=== PATIENT | female | born 1975 | race Caucasian/White ===

== ENCOUNTER 2017-01-12 21:27 | Emergency (ER) | payer OTHER ==
--- NOTE | 2017-01-12 22:32 | XRAY Preliminary Report ---
Exam: XR Foot 3 View RT IMPRESSION: Soft tissue swelling over the dorsum of the foot. No acute fracture or dislocation. [facility] SITE ID: [id number]
--- NOTE | 2017-01-12 22:34 | XRAY Report ---
EXAM: RIGHT FOOT RADIOGRAPHY EXAM DATE: 01/12/2017 09:51 PM. CLINICAL HISTORY: Right foot trauma, pain COMPARISON: None. TECHNIQUE: 3 views. FINDINGS: Bones: Normal. No fractures or bone lesions. Joints: Normal. No subluxations. Soft Tissues: Soft tissue swelling over the dorsum of the foot. IMPRESSION: Soft tissue swelling over the dorsum of the foot. No acute fracture or dislocation. [facility] Referring Provider Line: [phone] SITE ID: [id number]
--- NOTE | 2017-01-12 23:43 | ED Physician Documentation ---
PD HPI LOWER EXT INJURY - Stated complaint Stated Complaint: R FOOT PAIN - Chief complaint Chief Complaint: Ext Problem - History obtained from History obtained from: Patient - History of Present Illness PD HPI LOW EXT INJURY LOCATION: Toe (right 2nd and 3rd toes) Type of injury: Blunt / blow Where injury occurred: Home Timing - onset: How many days ago (2) Improved by: Rest Worsened by: Moving, Palpating Recently seen: Not recently seen - Additional information Additional information: patient injured her right foot 2nd and 3rd toes 2 days ago, accidentally kicked the bottom of a screen door, bending her toes back (hyperdorsiflexion), has had pain in these two toes since that time, worse with movement. 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 - Present Medications Home Medications: Ambulatory Orders Medication Instructions Recorded Confirmed Cetirizine HCl [Zyrtec] 10 mg PO DAILY 10/08/15 01/12/17 Levothyroxine [Synthroid] 1 tab PO DAILY 10/08/15 01/12/17 - Allergies Allergies/Adverse Reactions: Allergies Allergy/AdvReac Type Severity Reaction Status Date / Time acetaminophen [From Percocet] Allergy Intermediate Hives Verified 01/12/17 21:39 codeine Allergy Intermediate flu-like Verified 01/12/17 21:39 sxs oxycodone HCl * Allergy Intermediate Hives Verified 01/12/17 21:39 [From Percocet] Penicillins Allergy Unknown Unknown Verified 01/12/17 21:39 - Social History Does the pt smoke?: No Smoking Status: Never smoker Does the pt drink ETOH?: Yes Does the pt have substance abuse?: No - Immunizations Immunizations are current?: Yes PD ED PE NORMAL - Vitals Vital signs reviewed: Yes - General General: Alert and oriented X 3, No acute distress, Well developed/nourished - Derm Derm: Normal color, Warm and dry - Extremities Extremities: No deformity, No edema PD ED PE EXPANDED - Extremities Extremities: Tenderness (right 2nd and 3rd toes, predominantly proximal phalanges) Results - Vitals Vitals: Vital Signs - 24 hr 08/18/17 08/18/17 21:33 23:59 Temperature 36.7 C Heart Rate 80 77 Respiratory 17 16 Rate Blood Pressure 134/88 H 136/78 H O2 Saturation 97 98 Oxygen O2 Source Room air - Rads (name of study) right foot xrays Radiology: Prelim report reviewed, See rad report PD MEDICAL DECISION MAKING - ED course Complexity details: reviewed results, re-evaluated patient, considered differential, d/w patient Departure - Departure Disposition: 01 Home, Self Care Clinical Impression: Toe sprain Qualifiers: Encounter type: initial encounter Qualified Code(s): S93.509A - Unspecified sprain of unspecified toe(s), initial encounter Condition: Good Instructions: ED Sprain Toe Follow-Up: Tressa Mckeon MD [Provider Admit Priv/Credential] - Discharge Date/Time: 01/13/17 00:00
[2017-01-13 00:01] VITALS: BP 136/78
== END 2017-01-13 | disposition home or self-care (01) ==
LOC: ED 21:27
DX: S93.509A Unspecified sprain of unspecified toe(s), initial encounter (principal); W22.8XXA Striking against or struck by other objects, initial encounter; Y92.019 Unspecified place in single-family (private) house as the place of occurrence of the external cause; E03.9 Hypothyroidism, unspecified
CPT/HCPCS: 99282; 99283

== ENCOUNTER 2018-03-05 14:48 | Outpatient (CLI) | payer OTHER ==
--- NOTE | 2018-03-06 19:21 | MRI Report ---
Reason: PAIN IN UNSPECIFIED KNEE Procedure Date: 03/05/2018 Accession Number: [id number] / [id number] Procedure: MRI - Knee RT W/O CPT Code: FULL RESULT: EXAM: RIGHT KNEE MRI WITHOUT CONTRAST EXAM DATE: 03/05/2018 03:40 PM. CLINICAL HISTORY: Pain in unspecified knee. COMPARISON: None. TECHNIQUE: Multiplanar, multisequence T1-weighted and fluid-sensitive sequences of the knee without contrast. Other: None. FINDINGS: Bones: No fractures or subluxations. No marrow edema. No bone lesions. Articular Cartilage: Severe chondromalacia medial and lateral patellar facets. Severe focal chondromalacia medial trochlear groove. Moderate chondromalacia mid medial tibiofemoral compartment. Medial Meniscus: The medial meniscus is intact. Lateral Meniscus: The lateral meniscus is intact. Cruciate Ligaments: The anterior and posterior cruciate ligaments are intact. Collateral Ligaments: The medial collateral and lateral collateral ligamentous structures are intact. Tendons: The quadriceps, patellar, semimembranosus, and popliteus tendons are unremarkable. Musculature: No edema or fatty atrophy. Other: No effusion. No popliteal cyst. No loose bodies. The medial and lateral retinacula are intact. Subcutaneous edema superficial to the distal patellar tendon. IMPRESSION: 1. Negative for meniscus tear or internal derangement. 2. Severe chondromalacia patella. [facility] MUSCULOSKELETAL RADIOLOGY SECTION
== END 2018-03-05 14:49 | disposition home or self-care (01) ==
LOC: DI 14:48
PROVIDERS: ATTEND Family Medicine
DX: M22.41 Chondromalacia patellae, right knee (principal)

== ENCOUNTER 2021-05-19 09:32 | Emergency (ER) | payer OTHER ==
[2021-05-19 09:40] VITALS: BP 141/69
[2021-05-19] MEDS ORDERED: PROPARACAINE 0.5% OPHTH DROPS 15 ML RIGHTEYE STA (09:45)
--- NOTE | 2021-05-19 10:15 | ED Physician Documentation ---
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 She immediately irrigated this and then with persistence of symptoms she was asked to come to the emergency department for further treatment. She states there is some minor irritation to her right eye. She has no change in her vision. She has not otherwise been ill. Review of Systems Constitutional: denies: Fever, Chills Eyes: reports: Irritation. 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 - Present Medications Home Medications: Ambulatory Orders Medication Instructions Recorded Confirmed Cetirizine HCl [Zyrtec] 10 mg PO DAILY 10/08/15 01/12/17 Levothyroxine [Synthroid] 1 tab PO DAILY 10/08/15 01/12/17 - Allergies Allergies/Adverse Reactions: Allergies Allergy/AdvReac Type Severity Reaction Status Date / Time acetaminophen [From Percocet] Allergy Intermediate Hives Verified 05/19/21 09:40 codeine Allergy Intermediate flu-like Verified 05/19/21 09:40 sxs oxycodone HCl * Allergy Intermediate Hives Verified 05/19/21 09:40 [From Percocet] Penicillins Allergy Unknown Unknown Verified 05/19/21 09:40 - Social History Does the pt smoke?: No Smoking Status: Never smoker Does the pt drink ETOH?: Yes Does the pt have substance abuse?: No - Immunizations Immunizations are current?: Yes PD ED PE NORMAL - Vitals Vital signs reviewed: Yes (hypertensive ) - General General: Alert and oriented X 3, No acute distress, Well developed/nourished - HEENT HEENT: Atraumatic, PERRL, EOMI, Other (minimal injection to the right conjunciva) - Neck Neck: Supple, no meningeal sign, No bony TTP - Respiratory Respiratory: No respiratory distress - Derm Derm: Normal color, Warm and dry, No rash - Extremities Extremities: No deformity, No edema - Neuro Neuro: Alert and oriented X 3, sales operations lead 2-12 intact, No motor deficit, No sensory deficit, Normal speech Eye Opening: Spontaneous Motor: Obeys Commands Verbal: Oriented GCS Score: 15 - Psych Psych: Normal mood, Normal affect Results - Vitals Vitals: Vital Signs - 24 hr 05/19/21 09:36 Temperature 36.4 C L Heart Rate 80 Respiratory 18 Rate Blood Pressure 141/69 H O2 Saturation 95 Oxygen O2 Source Room air PD MEDICAL DECISION MAKING - ED course Complexity details: re-evaluated patient, considered differential, d/w patient ED course: 45-year-old female with chemical exposure to the right eye has a pH of 7 prior to irrigation her eyes instilled with Alcaine followed by irrigation with a liter of saline. No further treatment is applied. Departure - Departure Disposition: 01 Home, Self Care Clinical Impression: Chemical conjunctivitis of right eye Condition: Stable Instructions: ED Chemical Conjunctivitis Follow-Up: DENISE PIERCE MD [Primary Care Provider] -
== END 2021-05-19 10:38 | disposition home or self-care (01) ==
LOC: ED 09:32
DX: H10.211 Acute toxic conjunctivitis, right eye (principal); X58.XXXA Exposure to other specified factors, initial encounter; Y92.239 Unspecified place in hospital as the place of occurrence of the external cause; Y99.0 Civilian activity done for income or pay
CPT/HCPCS: 99281; 99282; J3490

== ENCOUNTER 2021-11-15 14:54 | Outpatient (CLI) | payer BC, OTHER ==
--- NOTE | 2021-11-15 16:43 | Ultrasound Report ---
PROCEDURE: Pelvic w/Transvaginal INDICATIONS: MENOMETRORRHAGIA TECHNIQUE: Real-time scanning was performed of the pelvic organs, with image documentation. Additional endovagi nal scanning was necessary due to incomplete visualization of the adnexal and endometrial structures by transabdominal scanning. COMPARISON: None. FINDINGS: Uterus: Uterus is anteverted and normal in size at 13.9 x 5.7 x 5.7 cm. The myometrium is homogeneo us. The endometrium measures 14 mm in combined thickness. No focal uterine mass Ovaries: The right ovary measures 3.7 x 3.2 x 3.3 cm, with a calculated ovarian volume of 20.4 cc. The left ovary measures 2.8 x 2.1 x 2.4 cm, with a calculated ovarian volume of 0.4 cc. The ovaries have a normal sonographic appearance. Less than 12 follicles can be seen in each ovary. Right ovari an cyst measuring 29 mm. Left ovarian cyst measuring 15 mm. No adnexal masses are seen. Other: No pathologic free abdominal or pelvic fluid. IMPRESSION: Negative examination. Reviewed by: Sharon Mccall MD on 11/15/2021 4:42 PM PDT Approved by: Sharon Mccall MD on 11/15/2021 4:42 PM PDT Station ID: [id number]
== END 2021-11-15 14:55 | disposition home or self-care (01) ==
LOC: DI 14:54
PROVIDERS: ATTEND Obstetrics & Gynecology
DX: N92.1 Excessive and frequent menstruation with irregular cycle (principal)

== ENCOUNTER 2022-04-17 13:06 | Outpatient (CLI) | payer BC, OTHER | END 2022-04-17 13:07 | disposition home or self-care (01) | LOC: NS 13:06 | PROVIDERS: ATTEND Registered Nurse | DX: R73.03 Prediabetes (principal); E66.9 Obesity, unspecified; Z71.3 Dietary counseling and surveillance; Z71.89 Other specified counseling; Z68.42 Body mass index [BMI] 45.0-49.9, adult; Z79.84 Long term (current) use of oral hypoglycemic drugs; Z79.899 Other long term (current) drug therapy | CPT/HCPCS: 97802 ==

== ENCOUNTER 2022-05-30 12:58 | Outpatient (CLI) | payer BC, OTHER | END 2022-05-30 12:59 | disposition home or self-care (01) | LOC: NS 12:58 | PROVIDERS: ATTEND Registered Nurse | DX: Z71.3 Dietary counseling and surveillance (principal); R73.03 Prediabetes | CPT/HCPCS: 97803 ==

== ENCOUNTER 2022-06-09 09:10 | Outpatient (CLI) | payer BC, OTHER ==
--- NOTE | 2022-06-09 10:12 | SLEEP CARE CONSULTATION ---
Information from patient questionnaire entered by Diana Paula. I have reviewed and concur with the information entered by Diana Paula. This document represents the service I personally performed and the decisions made by me, Litzy Roe ARNP. History of Present Illness Service Date and Time: 06/09/2022 0910 Reason for Visit: New patient Chief Complaint: reports: Snoring, Excessive daytime sleepiness, Observed pauses in breathing, Fatigue, Frequent awakenings at night Date of Onset: 5-6 years Usual bedtime: 9PM Time it takes to fall asleep: 15MIN Snores at night: Yes Observed to quit breathing while asleep: Yes Sleeps alone due to snoring: No Number of times waking at night: 2-3 Reasons for waking at night: reports: Choking, Snoring, Pain, Bathroom, Other (NOISE; "melvi horses" twice a week; hands will fall asleep due to bilateral carpal tunnel) Toss, Turn, or Twitch while sleeping: Yes Recalls having dreams: Yes Usually gets out of bed at: 5-7AM Feels refreshed in the morning: Yes (sometimes; more often she does not feel rested) Morning headache: Yes (2-3 times a week; RESOLVES MID AFTERNOON) Sleepy or fatigued during the day: Yes Ever fallen asleep while driving: No Takes day naps: Yes (1 daily intentionally but sometimes more unintentionally) Dreams during day naps: Yes (on/off) Prior sleep studies: No Additional HPI information: I had the pleasure of seeing CHRISTINA DAY today regarding the possibility of her having a sleep disorder. Her current complaints are excessive daytime sleepiness, fatigue, frequent night awakenings, observed pauses in breathing and snoring. She had a hysterectomy in January 2022 and was told she should seek evaluation for sleep apnea. She states that she has been told that she snores but it is light. She states she will wake herself up "snorting" and sometimes gasping. She states that she does take naps. She will sometimes have to take a nap because she physically hurts, but a 20 minute nap will revive her. - Parasomnia Symptoms Ever been unable to move upon waking from sleep: No Walks in sleep: Yes (lot as a child; not in a long time; has woke up sitting on side of bed) Talks in sleep: Yes Ever acted out dreams in sleep: No Ever felt weak in the knees when startled or emotional: No Bothered by creepy, crawly, restless sensations in legs: No Problems with memory or concentration: Yes (both) Subjective Initial [place] Sleepiness Scale score: 18 (05/28/22) Past Medical History Past Medical History: reports: Hypothyroidism, Anxiety, Other (hysterectomy 01/2022; pre- DM (seeing dietitian)) Social History 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 Patient is and lives in [place]. Have you smoked in the past 12 months: No Alcohol use: Yes Alcohol amount and frequency: 1 DRINK 1 X A MONTH Caffeine use: Yes Caffeine amount and frequency: 16OZ MORNING COFFEE Family History Family history of sleep disordered breathing: Yes Family Hx Sleep Apnea: Father: Snoring, Sleep apnea - Treated Allergies and Home Medications Known drug allergies: Yes (PENICILLIN, PERCOCET,CODIENE, ACETOMINOPHEN) Drug allergies reviewed: Yes Home medication list reviewed: Yes Allergy and home medication list: Medications: Levothyroxine Vit D 4000 units Elderberry supplement Review of Systems Weight gain over past 5 years: 50 Cardiovascular: reports: palpitations, leg or foot swelling Respiratory: reports: wheeze Neurological: reports: headaches. denies: head trauma Psychiatric: reports: anxiety Ear/Nose/Throat: reports: sinus problems, wisdom teeth removed. denies: tonsillectomy Endocrine: reports: thyroid disease Musculoskeletal: reports: joint pain, muscle pain or cramping Physical Exam Vital signs obtained and entered by: DIANA Davis MA Blood Pressure: 132/80 (LEFT ARM) Cuff size: long Heart Rate: 83 O2 Saturation: 97 Height: 5 ft 2 in Weight: 270 lb 3.2 oz Body Mass Index: 49.4 BMI Classification: Morbidly Obese Neck circumference: 17.5 Mouth and throat: narrow oropharynx Soft palate: long Hard palate: normal Uvula: normal Uvula visualization: 25% Mallampati Class III Tongue: enlarged in size with teeth josé on lateral edges Tonsils: 1+ Neck: normal w/o lymphadenopathy or thyromegaly Heart: regular rate and rhythm Lungs: clear bilaterally Impression and Plan 1. Suspected Obstructive Sleep Apnea-Hypopnea Syndrome, as suggested by a history of loud and irregular snoring, observed cessation of breath while asleep , gasping or choking in sleep, morning headache, frequent awakening during the night, unrefreshed sleep, cognitive impairment, and excessive daytime sleepiness. Narrow oropharynx and obesity are common predisposing factors for obstructive sleep apnea-hypopnea syndrome. I recommend proceeding to polysomnography to confirm the diagnosis and to assess severity. If the patient has significant sleep disordered breathing, a manual CPAP titration study will also be performed to find the optimal treatment pressure. I informed the patient of what the sleep studies involve and after some discussion, obtained agreement to proceed. The pathophysiology of obstructive sleep apnea-hypopnea syndrome was discussed with the patient and health risks of cardiovascular and cerebrovascular disease if not treated. Risks of drowsy driving discussed in detail and patient advised to avoid long distance driving and to chain puller at the first sign of drowsiness. Patient agreed to plan. * Schedule polysomnography * Avoid long distance driving or driving when feeling sleepy. * Avoid alcohol, sedative and muscle relaxant around bedtime. * Attempt to lose weight. * Review instructions provided by trained office staff on how to prepare for the sleep study. * Return for follow-up after sleep study completed. Counseling Topics: Weight loss health impact Visit Type: In Office Time Spent with Patient (minutes): 31 Provider Statement: I spent 100% of the Face to Face Visit with the patient with greater than 50% spent counseling the patient and coordination of care.
[2022-06-09 10:13] VITALS: BP 132/80
== END 2022-06-09 09:11 | disposition home or self-care (01) ==
LOC: SC 09:10
PROVIDERS: ATTEND Nurse Practitioner Family
DX: G47.33 Obstructive sleep apnea (adult) (pediatric) (principal); E66.01 Morbid (severe) obesity due to excess calories; Z68.42 Body mass index [BMI] 45.0-49.9, adult
CPT/HCPCS: 99203; 99212

== ENCOUNTER 2022-07-03 12:52 | Outpatient (CLI) | payer BC, OTHER | END 2022-07-03 12:53 | disposition home or self-care (01) | LOC: NS 12:52 | PROVIDERS: ATTEND Registered Nurse | DX: R73.03 Prediabetes (principal); Z71.3 Dietary counseling and surveillance; Z71.89 Other specified counseling; Z68.42 Body mass index [BMI] 45.0-49.9, adult | CPT/HCPCS: 97803 ==

== ENCOUNTER 2022-07-04 14:20 | Outpatient (CLI) | payer BC, OTHER | END 2022-07-04 14:21 | disposition home or self-care (01) | LOC: SC 14:20 | PROVIDERS: ATTEND Nurse Practitioner Family | DX: G47.33 Obstructive sleep apnea (adult) (pediatric) (principal); R09.02 Hypoxemia | CPT/HCPCS: 95806 ==

== ENCOUNTER 2022-07-18 14:01 | Outpatient (CLI) | payer BC, OTHER ==
[2022-07-18 14:42] VITALS: BP 126/72
--- NOTE | 2022-07-18 14:42 | SLEEP CARE CONSULTATION ---
Information from patient questionnaire entered by Diana Paula. I have reviewed and concur with the information entered by Diana Paula. This document represents the service I personally performed and the decisions made by me, Litzy Roe ARNP. History of Present Illness Service Date and Time: 07/18/2022 1401 Initial [place] Sleepiness Scale score: 18 (05/28/22) Current [place] Sleepiness Scale score: 21 (07/18/22) Additional HPI information: CHRISTINA DAY returns for follow up and results of the recently performed home sleep study. I explained the pathophysiology behind obstructive sleep apnea. We then spent quite a bit of time discussing different treatment options. For mild obstructive sleep apnea, surgery and oral appliance are alternatives to nasal CPAP therapy but in moderate or severe cases, nasal CPAP is the most effective and reliable treatment. Because apnea is primarily in supine position, then positional management therapy could be effective. Methods discussed such as positioning with pillows to prevent supine sleep. I reviewed the impact of weight changes on sleep apnea and strongly recommended losing weight. After some discussion, the patient opted to go with the nasal CPAP therapy. Nasal autoCPAP set at 4-15 cmH20 will be ordered with rationale explained. A manual titration study will be ordered if unable to find optimal pressure with office adjustments. I explained how CPAP machine works and what to expect when using the machine. Using CPAP every night in order to get used to it was emphasized. Patient advised to put CPAP mask on before getting into bed so as not to fall asleep w ithout CPAP. To assist acclimation to CPAP use, it could also be used for a short time during day while reading or watching TV. The patient was instructed to call the CPAP supplier to discuss any mechanical problem that may occur. If the mask given is uncomfortable or is difficult to keep on through the night even with adjustment, contact the CPAP supplier as many will replace with another mask style if notified before 30 days. If snoring or perceives is not getting enough air or too much air from the machine, notify this office. Patient does not drink alcohol. Patient was cautioned about risks of drowsy driving until sleepiness symptoms resolve. Patient denies drowsy driving. Sleep Study - Results Type of Sleep Study: Home sleep study (COMPLETED 07-04-22) Prior sleep studies: No Polysomnography/Home Sleep Study results: Physician Impression: The quality of the study is good. The length of the study is adequate (> 240 minutes). Please also see the tabulated and graphic data. 1. Obstructive Sleep Apnea-Hypopnea (ICD-10 G47.33), moderate, with an AHI of 16.2/hr and annie SaO2 of 80%. During the study, the patient had 13 apneas (13 obstructive, 0 central, 0 mixed) and 90 hypopneas. The longest episode lasted 89.0 seconds. The respiratory events occurred independently of sleep stage and body position (supine AHI was 16.1 and non-supine, 16.59). 2. Hypoxemia (ICD-10 R09.02), moderate, with the lowest oxygen saturation of 80 % and 23.1 minutes with SaO2 under 90%. Baseline oxygen saturation was normal (Average oxygen saturation was 92%). Allergies and Home Medications Drug allergies reviewed: Yes (as listed in EMR) Home medication list reviewed: Yes (no changes) Review of Systems Review of systems same as previous: Yes (no changes) Physical Exam Vital signs obtained and entered by: DIANA Davis MA Blood Pressure: 126/72 (LEFT ARM) Cuff size: regular Heart Rate: 82 O2 Saturation: 95 Height: 5 ft 2 in Weight: 271 lb 3.2 oz Body Mass Index: 49.6 BMI Classification: Morbidly Obese Impression and Plan 1. Obstructive Sleep Apnea-Hypopnea Syndrome, moderate, with lowest oxygen saturation of 80%. Obviously this is the cause of the patients symptoms of unrefreshed sleep, and excessive daytime sleepiness. Positive pressure therapy could benefit anxiety. As mentioned above, the patient will be started on nasal autoCPAP therapy with pressure set at 4-15 cmH2O. Compliance guidelines also reviewed. A copy of compliance guidelines will be given for reference at check out. 2. Hypoxemia, moderate, with the lowest oxygen saturation of 80 % and 23.1 minutes with SaO2 under 90%. Her baseline oxygen saturation was normal with an average oxygen saturation of 92%. * Nasal auto CPAP therapy, pressure at 4-15 cm H2O. * Attempt to lose weight. * Avoid alcohol consumption near bedtime. * Avoid supine sleep until using CPAP. * The patient is again cautioned about driving until sleepiness completely resolves. * Return one month after CPAP obtained. I will assess response to therapy and compliance at that time. Counseling Topics: Weight loss health impact Visit Type: In Office Time Spent with Patient (minutes): 20 Provider Statement: I spent 100% of the Face to Face Visit with the patient with greater than 50% spent counseling the patient and coordination of care.
== END 2022-07-18 14:02 | disposition home or self-care (01) ==
LOC: SC 14:01
PROVIDERS: ATTEND Nurse Practitioner Family
DX: G47.33 Obstructive sleep apnea (adult) (pediatric) (principal); R09.02 Hypoxemia; E66.01 Morbid (severe) obesity due to excess calories; Z68.42 Body mass index [BMI] 45.0-49.9, adult
CPT/HCPCS: 99212; 99213

== ENCOUNTER 2022-09-12 09:06 | Outpatient (CLI) | payer BC, OTHER ==
--- NOTE | 2022-09-12 09:36 | SLEEP CARE CONSULTATION ---
Information from patient questionnaire entered by Maryann Paula. I have reviewed and concur with the information entered by Maryann Paula. This document represents the service I personally performed and the decisions made by , Litzy Roe ARNP. History of Present Illness Service Date and Time: 09/12/2022 09 Previous diagnosis: Moderate, Obstructive Sleep Apnea-Hypopnea Syndrome AHI: 16.2 (in 2022) Reason for follow up: first compliance Equipment type: CPAP (RESMED Airsense 10, s/u 06/2022) Equipment obtained from: Other ([facility], got initial supplies) Mask style: Nasal Mask brand: Respironics (Dreamwear, small cushion) Backup mask available: No Last cushion change: 1 month Prior sleep studies: No Type of Sleep Study: Home sleep study (COMPLETED 07-04-22) HPI additional information: CHRISTINA DAY was diagnosed to have moderate, AHI 16.2, obstructive sleep apnea- hypopnea syndrome and returned today for CPAP therapy first compliance follow- up. Sleep Study - Results Type of Sleep Study: Home sleep study (COMPLETED 07-04-22) Prior sleep studies: No CPAP Compliance Data - Data Reviewed with Patient Average duration of nightly device use: 6 HRS 24 MINS Compliance rate %: 87 (08/12/22-09/10/22; 30 used) Current pressure setting (cmH2O): 4-15 (median 5.8, avg 7.8, max 9.0) Average residual AHI: 0.5 Central apnea: 0 Obstructive apnea: 0.2 Subjective Missed days of use due to: reports: travel Patient concerns: reports: epistaxis (dry bloody nose 3-4, usually has with her allergies during this season), other (headaches, improving/reduced). denies: aerophagia, mask discomfort, air blowing in eyes, mask leak noise, condensation in mask/hose, nasal congestion, dry mouth, nose, throat Observed to snore while using device: No Current pressure setting perceived as: comfortable On therapy, patient: reports: sleeping better, awakening more refreshed, being more awake and alert during the day (not needing nap as often), more rested overall. denies: drowsiness while driving Initial [place] Sleepiness Scale score: 18 (05/28/22) Current [place] Sleepiness Scale score: 10 Allergies and Home Medications Drug allergies reviewed: Yes Home medication list reviewed: Yes (-triptan for migraines, not taken yet) Allergy and home medication list: Allergies acetaminophen [From Percocet] Allergy (Intermediate, Verified 09/11/22 08:38) Hives codeine Allergy (Intermediate, Verified 09/11/22 08:38) flu-like sxs oxycodone HCl * [From Percocet] Allergy (Intermediate, Verified 09/11/22 08:38) Hives Penicillins Allergy (Unknown, Verified 09/11/22 08:38) Unknown Review of Systems Review of systems same as previous: Yes (no changes) Physical Exam Vital signs obtained and entered by: MARYANN Davis MA Blood Pressure: 138/90 (LEFT ARM) Cuff size: long Heart Rate: 84 O2 Saturation: 94 Height: 5 ft 2 in Weight: 270 lb 6.4 oz Weight change since last visit: 1 lb loss Body Mass Index: 49.4 BMI Classification: Morbidly Obese Impression and Plan 1. Obstructive Sleep Apnea-Hypopnea Syndrome, moderate, with good treatment compliance and gooda apnea control. On CPAP therapy, the patient has better sleep quality and is more rested overall. She has been having some bloody noses 3-4 times in last month. She states she normally gets these with her allergies during this season. Nasal dryness can contribute to nose bleeding and can be reduced with increasing the CPAP humidity and the heated hose can be increased if condensation. She may also use a nasal moisturizer like [place] that she can obtain from local pharmacy. She voiced understanding. The patients pressure will be changed to autoCPAP 6-9 cmH20 to reflect pressures being used. Patient advised to contact me if pressure change is uncomfortable so that it can be adjusted. Goals for apnea control discussed. Patient's apnea severity and rationale for treatment to reduce apnea, improve sleep quality and reduce cardio vascular and cerebrovascular events was reviewed. I also reviewed the benefit of consistent device use of CPAP for anxiety. 2. Obesity, unspecified. Currently patients BMI is 49.4. Obesity increases the risk of apnea, CPAP pressure requirements and overall health risks especially cardiovascular and diabetes. Thus patient is advised to continue to try to lose weight. * Change auto CPAP pressure to 6-9 cmH2O * Notify me if snoring with mask or feeling that the pressure is too much or too little * Attempt to lose weight * Call this office if any problems using CPAP * Return for follow up in 1-2 months, or sooner if concerns arise Counseling Topics: Spare mask, Weight loss health impact Visit Type: In Office Time Spent with Patient (minutes): 22 Provider Statement: I spent 100% of the Face to Face Visit with the patient with greater than 50% spent counseling the patient and coordination of care.
[2022-09-12 09:37] VITALS: BP 138/90
== END 2022-09-12 09:07 | disposition home or self-care (01) ==
LOC: SC 09:06
PROVIDERS: ATTEND Nurse Practitioner Family
DX: G47.33 Obstructive sleep apnea (adult) (pediatric) (principal); E66.01 Morbid (severe) obesity due to excess calories; Z68.42 Body mass index [BMI] 45.0-49.9, adult
CPT/HCPCS: 99212; 99213

== ENCOUNTER 2022-11-07 09:12 | Outpatient (CLI) | payer BC, OTHER ==
--- NOTE | 2022-11-07 09:35 | SLEEP CARE CONSULTATION ---
Information from patient questionnaire entered by Diana Paula. I have reviewed and concur with the information entered by Diana Paula. This document represents the service I personally performed and the decisions made by , Litzy Roe ARNP. History of Present Illness Service Date and Time: 11/07/2022 09 Previous diagnosis: Moderate, Obstructive Sleep Apnea-Hypopnea Syndrome AHI: 16.2 (in 2022) Reason for follow up: other (2 MONTH F/U) Equipment type: CPAP (RESMED Airsense 10, s/u 06/2022) Equipment obtained from: Other ([facility], got initial supplies) Mask style: Nasal Mask brand: Respironics (Dreamwear) Backup mask available: Yes (other mask) Last cushion change: 1 month Prior sleep studies: No Type of Sleep Study: Home sleep study (COMPLETED 07-04-22) HPI additional information: CHRISTINA DAY was diagnosed to have moderate, AHI 16.2, obstructive sleep apnea- hypopnea syndrome and returned today for CPAP therapy two month follow-up. Sleep Study - Results Type of Sleep Study: Home sleep study (COMPLETED 07-04-22) Prior sleep studies: No CPAP Compliance Data - Data Reviewed with Patient Average duration of nightly device use: 6 hours 22 mins Compliance rate %: 82 (09/07/22-11/05/22; 52/60 days used) Current pressure setting (cmH2O): 6-9 Average residual AHI: 0.3 Central apnea: 0 Obstructive apnea: 0.2 Hypopnea: 0 Average large leak: 4.4 LPM Subjective Missed days of use due to: reports: travel Patient concerns: reports: mask discomfort (head gear pulling on hair, wearing cap on head with some improvement), air blowing in eyes (little bit), dry mouth, nose, throat (dry nose) Observed to snore while using device: No Current pressure setting perceived as: comfortable On therapy, patient: reports: sleeping better, awakening more refreshed, being more awake and alert during the day, more rested overall. denies: drowsiness while driving Initial [place] Sleepiness Scale score: 18 (05/28/22) Current [place] Sleepiness Scale score: 8 Allergies and Home Medications Known drug allergies: Yes (as listed) Drug allergies reviewed: Yes Home medication list reviewed: Yes (Lexapro for anxiety and depression) Allergy and home medication list: Allergies acetaminophen [From Percocet] Allergy (Intermediate, Verified 11/06/22 20:59) Hives codeine Allergy (Intermediate, Verified 11/06/22 20:59) flu-like sxs oxycodone HCl * [From Percocet] Allergy (Intermediate, Verified 11/06/22 20:59) Hives Penicillins Allergy (Unknown, Verified 11/06/22 20:59) Unknown Review of Systems Review of systems same as previous: Yes (no changes) Physical Exam Vital signs obtained and entered by: Litzy Mcintosh NP Blood Pressure: 141/91 Cuff size: wrist (left) Heart Rate: 75 O2 Saturation: 96 Height: 5 ft 2 in Weight: 270 lb 6.4 oz Body Mass Index: 49.4 BMI Classification: Morbidly Obese Impression and Plan 1. Obstructive Sleep Apnea-Hypopnea Syndrome, moderate, with good treatment compliance and good apnea control. On CPAP therapy, the patient has better sleep quality and is more rested overall. Patient has been doing very well and has significant improvement of her sleep apnea. She states she still gets a little bit of dry nose and has tried to adjust her humidity setting but got a lot of condensation and so she changed it back. We discussed ways of adjusting her humidifier and heated hose to try and get a reduction of her dry nose. She voiced understanding. Patient's apnea severity and rationale for treatment to reduce apnea, improve sleep quality and reduce cardiovascular and cerebrovascular events was reviewed. I also reviewed the benefit of consistent device use of CPAP for anxiety. 2. Obesity, unspecified. Currently patients BMI is 49.4. Obesity increases the risk of apnea, CPAP pressure requirements and overall health risks especially cardiovascular and diabetes. Thus patient is advised to lose weight. * Continue auto CPAP pressure at 6-9 cmH2O * Notify me if snoring with mask or feeling that the pressure is too much or too little * Attempt to lose weight * Call this office if any problems using CPAP * Return for follow up in 3 months, or sooner if concerns arise Counseling Topics: Spare mask, Weight loss health impact Visit Type: In Office Time Spent with Patient (minutes): 20 Provider Statement: I spent 100% of the Face to Face Visit with the patient with greater than 50% spent counseling the patient and coordination of care.
[2022-11-07 09:37] VITALS: BP 141/91
== END 2022-11-07 09:13 | disposition home or self-care (01) ==
LOC: SC 09:12
PROVIDERS: ATTEND Nurse Practitioner Family
DX: G47.33 Obstructive sleep apnea (adult) (pediatric) (principal); E66.01 Morbid (severe) obesity due to excess calories; Z68.42 Body mass index [BMI] 45.0-49.9, adult
CPT/HCPCS: 99212; 99213

== ENCOUNTER 2022-12-19 08:24 | Outpatient (CLI) | payer BC, OTHER ==
[2022-12-19 07:42] LABS: ALBUMIN/GLOBULIN RATIO 1.4 (1.0-2.2); ALKALINE PHOSPHATASE 61 IU/L (42-121); ALT ALANINE AMINOTRANSFERASE 20 IU/L (10-60); AST ASPARTATE AMINOTRANSFERASE 14 IU/L (10-42); BILIRUBIN,TOTAL 0.4 mg/dL (0.2-1.0); BUN - BLOOD UREA NITROGEN 10 mg/dL (6-20); CARBON DIOXIDE - CO2 28 mmol/L (21-32); CHLORIDE 104 mmol/L (101-111); CHOL/HDL RATIO 4.5 (<4.4); CHOLESTEROL 153 mg/dL; CREATININE 0.6 mg/dL (0.6-1.3); GFR - MDRD 107 (>89); GLUCOSE 130 mg/dL (74-104); HDL CHOLESTEROL 34 mg/dL; LDL CHOLESTEROL,CALCULATED 67 mg/dL; SODIUM 138 mmol/L (135-145); TOTAL PROTEIN 6.9 g/dL (6.4-8.9); TRIGLYCERIDES 262 mg/dL (48-352); VLDL CHOLESTEROL 52 mg/dL
[2022-12-19 11:31] LABS: ESTIMATED AVERAGE GLUCOSE 128 mg/dL (70-100); HEMOGLOBIN A1c% 6.1 % (4.27-6.07)
== END 2022-12-19 08:25 | disposition home or self-care (01) ==
LOC: LAB 08:24
PROVIDERS: ATTEND Registered Nurse
DX: R73.03 Prediabetes (principal); R73.01 Impaired fasting glucose
CPT/HCPCS: 36415; 80053; 80061; 83036; 83721

== ENCOUNTER 2023-02-06 08:32 | Outpatient (CLI) | payer BC, OTHER ==
--- NOTE | 2023-02-06 08:57 | Sleep Patient Instructions ---
Sleep Center Visit Summary - Patient Visit Information Reason for Visit: Three month followup for PAP therapy - Patient Instructions Additional Instructions: You were here for follow up of CPAP therapy. You will be continued on CPAP therapy with pressure at 6-9 cmH2O. You should follow up with sleep care in 6 months. You may contact us sooner for any questions or concerns. - Clinic Information Contact: [facility] [address] [place] [address] [email or web address] T: [phone]
--- NOTE | 2023-02-06 09:01 | SLEEP CARE CONSULTATION ---
Information from patient questionnaire entered by Maryann Paula. I have reviewed and concur with the information entered by Maryann Paula. This document represents the service I personally performed and the decisions made by me, Litzy Roe ARNP. History of Present Illness Service Date and Time: 02/06/2023 0832 Previous diagnosis: Moderate, Obstructive Sleep Apnea-Hypopnea Syndrome AHI: 16.2 (in 2022) Reason for follow up: three month (F/U) Equipment type: CPAP (RESMED Airsense 10, s/u 06/2022) Equipment obtained from: Other ([facility] [employer], [employer] supplies) Mask style: Nasal Mask brand: Respironics (Dreamwear) Backup mask available: Yes (old mask) Last cushion change: 2 weeks Prior sleep studies: No Type of Sleep Study: Home sleep study (COMPLETED 07-04-22) HPI additional information: CHRISTINA DAY was diagnosed to have moderate, AHI 16.2, obstructive sleep apnea- hypopnea syndrome and returned today for CPAP therapy three month follow-up. Sleep Study - Results Type of Sleep Study: Home sleep study (COMPLETED 07-04-22) Prior sleep studies: No CPAP Compliance Data - Data Reviewed with Patient Average duration of nightly device use: 7 HRS 10 MINS Compliance rate %: 99 (11/04/22-02/01/23; 89/90 days used) Current pressure setting (cmH2O): 6-9 Average residual AHI: 0.5 Central apnea: 0 Obstructive apnea: 0.4 Average large leak: 7.9 L/min Subjective Patient concerns: reports: air blowing in eyes, mask leak noise, nasal congestion (runny nose in AM). denies: aerophagia, mask discomfort, condensation in mask/hose, dry mouth, nose, throat, epistaxis Observed to snore while using device: No Current pressure setting perceived as: comfortable On therapy, patient: reports: sleeping better, awakening more refreshed, being more awake and alert during the day, more rested overall. denies: drowsiness while driving Initial [place] Sleepiness Scale score: 18 (05/28/22) Current [place] Sleepiness Scale score: 9 (02/06/23) Allergies and Home Medications Known drug allergies: Yes (as listed) Drug allergies reviewed: Yes Home medication list reviewed: Yes (no changes) Allergy and home medication list: Allergies acetaminophen [From Percocet] Allergy (Intermediate, Verified 02/06/23 08:34) Hives codeine Allergy (Intermediate, Verified 02/06/23 08:34) flu-like sxs oxycodone HCl * [From Percocet] Allergy (Intermediate, Verified 02/06/23 08:34) Hives Penicillins Allergy (Unknown, Verified 02/06/23 08:34) Unknown Home Medications Levothyroxine [Synthroid] 1 tab PO DAILY 10/08/15 [History] Cholecalciferol [Vitamin D3] See Rx Instructions .ROUTE .COMPLEX 06/09/22 [History] Elderberry Fruit [Elderberry] See Rx Instructions .ROUTE .COMPLEX 06/09/22 [History] Multivitamin See Rx Instructions .ROUTE .COMPLEX 06/09/22 [History] Vit C/Multivit-Min/Elderberry [Emergen-C Elderberry Gummy] See Rx Instructions .ROUTE .COMPLEX 06/09/22 [History] Review of Systems Review of systems same as previous: Yes (no changes) Physical Exam Vital signs obtained and entered by: MARYANN Davis MA Blood Pressure: 129/76 (LEFT ) Cuff size: wrist Heart Rate: 72 O2 Saturation: 95 Height: 5 ft 2 in Weight: 266 lb Weight change since last visit: 4 lb loss Body Mass Index: 48.6 BMI Classification: Morbidly Obese Impression and Plan 1. Obstructive Sleep Apnea-Hypopnea Syndrome, moderate, with good treatment compliance and good apnea control. On CPAP therapy, the patient has better sleep quality and is more rested overall. Patient has significant improvement of their sleep apnea and is satisfied with current CPAP therapy. Patient has been having little difficulty with the headgear slipping off the back of her head. She does have the extension arms to help but it still slips up on her head. She has tried a half ponytail with some improvement. We discussed trying a different style of mask but she wants to continue with this at this point. If she so decides to try a different mask she will call for a mask refitting. She has no other particular complaints, the headaches are not upon awakening in the morning and the nasal congestion is a slight runny nose in the mornings. Patient's apnea severity and rationale for treatment to reduce apnea, improve sleep quality and reduce cardiovascular and cerebrovascular events was reviewed. I also reviewed the benefit of consistent device use of CPAP for anxiety. 2. Obesity, unspecified. Currently patients BMI is 48.6. Obesity increases the risk of apnea, CPAP pressure requirements and overall health risks especially cardiovascular and diabetes. Thus patient is advised to continue to try to lose weight. * Continue auto CPAP pressure at 6-9 cmH2O * Notify me if snoring with mask or feeling that the pressure is too much or too little * Attempt to lose weight * Call this office if any problems using CPAP * Return for follow up in 6 months, or sooner if concerns arise Counseling Topics: Spare mask, Weight loss health impact Visit Type: In Office Time Spent with Patient (minutes): 21 Provider Statement: I spent 100% of the Face to Face Visit with the patient with greater than 50% spent counseling the patient and coordination of care.
[2023-02-06 09:03] VITALS: BP 129/76; O2SAT 95
== END 2023-02-06 08:33 | disposition home or self-care (01) ==
LOC: SC 08:32
PROVIDERS: ATTEND Nurse Practitioner Family
DX: G47.33 Obstructive sleep apnea (adult) (pediatric) (principal); E66.01 Morbid (severe) obesity due to excess calories; Z68.42 Body mass index [BMI] 45.0-49.9, adult
CPT/HCPCS: 99212; 99213

== ENCOUNTER 2023-03-15 05:03 | Emergency (ER) | payer BC, OTHER ==
--- NOTE | 2023-03-15 05:29 | ED Physician Documentation ---
PD HPI CHEST PAIN - Stated complaint Stated Complaint: CHEST PX/DIZZY - Chief complaint Chief Complaint: Cardiac - History obtained from History obtained from: Patient - Additional information Additional information: 47yF nonsmoker with pmh hypothyroidism, anxiety and depression, no FH [place] <65yoa, nonsmoker, p/w L sided cp radiating to L jaw and LUE sudden onset around midnight tonight, a/w nausea and frontal TSANG. patient states she had MRI yesteday with contrast of the brain for migraine study. otherwise had been feeling normal. denies fever, soa, vomiting or abdominal pain. 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 : None HEENT: None Psych: None Musculoskeletal: None Derm: None - Past Surgical History Past Surgical History: Yes /APPRENTICE PAINTER HAND: section - Present Medications Home Medications: Ambulatory Orders Medication Instructions Recorded Confirmed Levothyroxine [Synthroid] 1 tab PO DAILY 10/08/15 02/06/23 Cholecalciferol [Vitamin D3] See Rx Instructions .ROUTE .COMPLEX 06/09/22 02/06/23 Elderberry Fruit [Elderberry] See Rx Instructions .ROUTE .COMPLEX 06/09/22 02/06/23 Multivitamin See Rx Instructions .ROUTE .COMPLEX 06/09/22 02/06/23 Vit C/Multivit-Min/Elderberry See Rx Instructions .ROUTE .COMPLEX 06/09/22 02/06/23 [Emergen-C Elderberry Gummy] - Allergies Allergies/Adverse Reactions: Allergies Allergy/AdvReac Type Severity Reaction Status Date / Time acetaminophen [From Percocet] Allergy Intermediate Hives Verified 03/15/23 05:21 codeine Allergy Intermediate flu-like Verified 03/15/23 05:21 sxs oxycodone HCl * Allergy Intermediate Hives Verified 03/15/23 05:21 [From Percocet] Penicillins Allergy Unknown Unknown Verified 03/15/23 05:21 - Social History Does the pt smoke?: No Smoking Status: Never smoker Does the pt drink ETOH?: Yes Does the pt have substance abuse?: No - Immunizations Immunizations are current?: Yes - POLST Patient has POLST: No PD ED PE NORMAL - Vitals Vital signs reviewed: Yes - General General: Alert and oriented X 3, No acute distress, Well developed/nourished - HEENT HEENT: Atraumatic, PERRL, EOMI, Moist mucous membranes, Pharynx benign - Neck Neck: Supple, no meningeal sign - Cardiac Cardiac: RRR - Respiratory Respiratory: No respiratory distress, Clear bilaterally - Abdomen Abdomen: Non tender, Non distended Results - Vitals Vitals: Vital Signs - 24 hr 03/15/23 03/15/23 05:18 06:21 Temperature 35.9 C L Heart Rate 67 75 Respiratory 20 19 Rate Blood Pressure 138/78 H 137/85 H O2 Saturation 97 100 Oxygen O2 Source Room air - EKG (time done) 0511 EKG releavant findings:: EKG personally interpreted by author of this note. Relevant findings are: Rate: Rate (enter#) (64) Rhythm: NSR [place]: Normal Intervals: Normal [place] QRS: Normal Ischemia: Normal ST segments Computer interpretation: Agree with computer - Labs Labs: Laboratory Tests 03/15/23 03/15/23 06:06 06:47 WBC 7.5 RBC 4.88 Hgb 13.8 Hct 43.0 MCV 88.1 MCH 28.3 MCHC 32.1 RDW 13.7 Neut # (Auto) 4.4 Lymph # (Auto) 2.5 [place] # (Auto) 0.4 Eos # (Auto) 0.1 Baso # (Auto) 0.0 Absolute Nucleated RBC 0.00 Nucleated RBC % 0.0 Sodium 138 Potassium 4.3 Chloride 106 Carbon Dioxide 26 Anion Gap 6.0 BUN 9 Creatinine 0.5 L Estimated GFR (MDRD) 132 Glucose 133 H Calcium 9.0 Total Bilirubin 0.3 AST 18 ALT 23 Alkaline Phosphatase 65 Troponin I High Sens 7.3 Total Protein 6.3 L Albumin 3.9 Globulin 2.4 Albumin/Globulin Ratio 1.6 Lipase 13 PD Medical Decision Making - ED course ED course: 47yF presents with atypical chest pain X 1 day, nonexertional. cbc, abdominal panel, troponin, ekg, cxr ordered. initial ekg looks good. cxr no evidence cardiopulmonary disease per my wet read. labs unremarkable. HEART score 1 (age). advised outpatient follow up with PCP. return precautions given. Departure - Departure Disposition: 01 Home, Self Care Clinical Impression: Chest pain Condition: Stable Instructions: ED Chest Pain Atypical Unkn Cause Comments: You were seen in the emergency department for chest pain that appears not to be of a dangerous origin tonight. Your labwork, ekg, and chest xray looked okay. Please follow-up with your primary care provider and return to the emergency department if you have any new or worsening symptoms or other concerns. Forms: PCP List, Activity restrictions
--- OUTSIDE RECORDS SUMMARY | 2023-03-15 06:23 | EXTERNAL MEDICAL SUMMARY RPT | Continuity of Care Document ---
Author Name Unknown Address [address] [place] [address] Phone Organization [facility] Address [address] [place] [address] Phone Problems date description facility 2023-03-14 15:01 Migraine with aura, not intractable, without status migraino [facility] 2023-03-14 15:01 Other symptoms and s igns involving cognitive functions and a [facility] Social History date description facility
[2023-03-15 06:32] LABS: TROPONIN I HIGH SENSITIVITY 7.3 ng/L (2.3-14.8)
[2023-03-15 06:53] LABS: ALBUMIN 3.9 g/dL (3.2-5.5); ALBUMIN/GLOBULIN RATIO 1.6 (1.0-2.2); BILIRUBIN,TOTAL 0.3 mg/dL (0.2-1.0); CREATININE 0.5 mg/dL (0.6-1.3); POTASSIUM 4.3 mmol/L (3.5-4.5); TOTAL PROTEIN 6.3 g/dL (6.4-8.9)
[2023-03-15 06:54] LABS: BASOPHILS % (AUTO) 0.4 %; EOSINOPHILS # (AUTO) 0.1 10^3/uL (0.0-0.7); EOSINOPHILS % (AUTO) 1.5 %; HGB - HEMOGLOBIN 13.8 g/dL (12.0-16.0); LYMPHOCYTES # (AUTO) 2.5 10^3/uL (1.5-3.5); LYMPHOCYTES % (AUTO) 33.9 %; MEAN CORPUSCULAR HEMOGLOBIN 28.3 pg (27.0-31.0); MEAN CORPUSCULAR HGB CONC 32.1 g/dL (32.0-36.0); MEAN CORPUSCULAR VOLUME 88.1 fL (81.0-99.0); MONOCYTES # (AUTO) 0.4 10^3/uL (0.0-1.0); MONOCYTES % (AUTO) 5.4 %; NEUTROPHILS # (AUTO) 4.4 10^3/uL (1.5-6.6); NEUTROPHILS % (AUTO) 58.5 %; RED BLOOD COUNT 4.88 10^6/uL (4.20-5.40); RED CELL DISTRIBUTION WIDTH 13.7 % (12.0-15.0)
[2023-03-15 07:19] LABS: WHITE BLOOD COUNT 7.5 x10^3/uL (4.8-10.8)
[2023-03-15 07:41] VITALS: BP 124/71; O2SAT 99
--- NOTE | 2023-03-15 09:04 | XRAY Report ---
PROCEDURE: Chest 1 View X-Ray INDICATIONS: Chest Pain TECHNIQUE: One view of the chest was acquired. COMPARISON: None. FINDINGS: Surgical changes and devices: None. Lungs and pleura: No pleural effusions or pneumothorax. Lungs are clear. Mediastinum: Mediastinal contours appear normal. Heart size is normal. Bones and chest wall: No suspicious bony lesions. Overlying soft tissues appear unremarkable. IMPRESSION: No acute cardiopulmonary process. Findings are concordant with preliminary interpretation provided by [facility]. Reviewed by: Lev Estrella MD on 03/15/2023 9:02 AM PDT Approved by: Lev Estrella MD on 03/15/2023 9:02 AM PDT Station ID: [id number]
== END 2023-03-15 07:33 | disposition home or self-care (01) ==
LOC: ED 05:03
DX: R07.9 Chest pain, unspecified (principal)
CPT/HCPCS: 36415; 80053; 83690; 84484; 85025; 93005; 99283; 99284

== ENCOUNTER 2023-08-15 15:49 | Outpatient (CLI) | payer BC, OTHER ==
--- NOTE | 2023-08-15 16:21 | Sleep Patient Instructions ---
Sleep Center Visit Summary - Patient Visit Information Reason for Visit: 6-month follow-up - Patient Instructions Additional Instructions: You were here for follow up of CPAP therapy. You will be continued on CPAP therapy with pressure at 6-9 cmH2O. You should follow up with sleep care in 12 months. You may contact us sooner for any questions or concerns. - Clinic Information Contact: [facility] [address] [place] [address] [email or web address] T: [phone]
[2023-08-15 16:24] VITALS: BP 162/109; O2SAT 95
--- NOTE | 2023-08-15 16:24 | SLEEP CARE CONSULTATION ---
Information from patient questionnaire entered by Diana Paula. I have reviewed and concur with the information entered by Diana Paula. This document represents the service I personally performed and the decisions made by me, Litzy Roe ARNP. History of Present Illness Service Date and Time: 08/15/2023 1549 Previous diagnosis: Moderate, Obstructive Sleep Apnea-Hypopnea Syndrome AHI: 16.2 (in 2022) Reason for follow up: six month (F/U) Equipment type: CPAP (RESMED AIRSENSE 10 AUTOSET SETUP DATE 07/25/22) Equipment obtained from: Other ([employer], [employer]) Mask style: Nasal Mask brand: Respironics ([employer]) Backup mask available: Yes Last cushion change: every 2 weeks or so Prior sleep studies: No Type of Sleep Study: Home sleep study (COMPLETED 07-04-22) HPI additional information: JUDY DAY was diagnosed to have moderate, AHI 16.2, obstructive sleep apnea- hypopnea syndrome and returned today for CPAP therapy six month follow-up. Sleep Study - Results Type of Sleep Study: Home sleep study (COMPLETED 07-04-22) Prior sleep studies: No CPAP Compliance Data - Data Reviewed with Patient Average duration of nightly device use: 8 HRS 23 MINS Compliance rate %: 96 (02/14/23-08/12/23; 173/180 days used) Current pressure setting (cmH2O): 6-9 Average residual AHI: 0.6 Central apnea: 0 Obstructive apnea: 0.5 Average large leak: 3.9 L/min Subjective Missed days of use due to: reports: illness (couldn't breathe through nose), travel Patient concerns: reports: dry mouth, nose, throat (dry nose). denies: aerophagia, mask discomfort, air blowing in eyes, mask leak noise, condensation in mask/hose, nasal congestion, epistaxis Observed to snore while using device: No Current pressure setting perceived as: comfortable On therapy, patient: reports: sleeping better, awakening more refreshed, being more awake and alert during the day, more rested overall. denies: drowsiness while driving Initial [place] Sleepiness Scale score: 18 (05/28/22) Current [place] Sleepiness Scale score: 8 (08/15/23) Allergies and Home Medications Known drug allergies: Yes (as listed) Drug allergies reviewed: Yes Home medication list reviewed: Yes (no changes) Allergy and home medication list: Allergies acetaminophen [From Percocet] Allergy (Intermediate, Verified 08/13/23 11:40) Hives codeine Allergy (Intermediate, Verified 08/13/23 11:40) flu-like sxs oxycodone HCl * [From Percocet] Allergy (Intermediate, Verified 08/13/23 11:40) Hives Penicillins Allergy (Unknown, Verified 08/13/23 11:40) Unknown Review of Systems Review of systems same as previous: Yes (NO CHANGE) Physical Exam Vital signs obtained and entered by: DIANA Davis MA Blood Pressure: 162/109 (LEFT ARM) Cuff size: long Heart Rate: 75 O2 Saturation: 95 Height: 5 ft 2 in Weight: 264 lb 6.4 oz Weight change since last visit: 2 lb loss Body Mass Index: 48.3 BMI Classification: Morbidly Obese Impression and Plan 1. Obstructive Sleep Apnea-Hypopnea Syndrome, moderate, with good treatment compliance and good apnea control. On CPAP therapy, the patient has better sleep quality and is more rested overall. Judy has been doing well and she states she is comfortable with using her CPAP. She has significant improvement of her sleep apnea. She has had occasional dry nose and we reviewed ways to help reduce this including adjusting her humidity or using saline nasal moisturizers. She voiced understanding. Patient's apnea severity and rationale for treatment to reduce apnea, improve sleep quality and reduce cardiovascular and cerebrovascular events was reviewed. I also reviewed the benefit of consistent device use of CPAP for anxiety. 2. Obesity, unspecified. Currently patients BMI is 48.3. She has lost weight. Obesity increases the risk of apnea, CPAP pressure requirements and overall health risks especially cardiovascular and diabetes. Thus patient is advised to continue to try to lose weight. * Continue auto CPAP pressure at 6-9 cmH2O * Notify me if snoring with mask or feeling that the pressure is too much or too little * Attempt to lose weight * Call this office if any problems using CPAP * Return for follow up in 12 months, or sooner if concerns arise Counseling Topics: Spare mask, Weight loss health impact Follow up with Sleep Care in: 1 year Visit Type: In Office Time Spent with Patient (minutes): 14 Provider Statement: I spent 100% of the Face to Face Visit with the patient with greater than 50% spent counseling the patient and coordination of care.
== END 2023-08-15 15:50 | disposition home or self-care (01) ==
LOC: SC 15:49
PROVIDERS: ATTEND Nurse Practitioner Family
DX: G47.33 Obstructive sleep apnea (adult) (pediatric) (principal); E66.01 Morbid (severe) obesity due to excess calories; Z68.42 Body mass index [BMI] 45.0-49.9, adult
CPT/HCPCS: 99212

== ENCOUNTER 2023-10-11 12:15 | Outpatient (CLI) | payer BC, OTHER ==
[2023-10-11 21:57] LABS: BACTERIAL VAGINOSIS DNA NEGATIVE (NEGATIVE); CANDIDA GLABRATA DNA NEGATIVE (NEGATIVE); CANDIDA GROUP DNA POSITIVE (NEGATIVE); CANDIDA KRUSEI DNA NEGATIVE (NEGATIVE); TRICHOMONAS VAGINALIS DNA NEGATIVE (NEGATIVE)
== END 2023-10-11 12:30 | disposition home or self-care (01) ==
LOC: LAB.N 12:15
PROVIDERS: ATTEND Physician Assistant Medical
DX: N89.8 Other specified noninflammatory disorders of vagina (principal); R82.81 Pyuria
CPT/HCPCS: 81514; 87086